=== PATIENT | female | born 1960 | race Caucasian/White ===

== ENCOUNTER 2017-03-09 19:48 | Emergency (ER) | payer OTHER ==
[~2017-03-09] VITALS: Ht 160 cm; Wt 70.8 kg
[~2017-03-09 19:48] MED LIST: ALEVE220 MG PO; B COMPLEX1 TA2 PO; FERATE27 MG PO; FLEXERIL10 MG PO; HYDROCODONE BIT1 T19 PO; MEDROL DOSEPAK4 MG PO; VICODIN 5/500 505 MG PO
== END 2017-03-09 20:53 | disposition home or self-care (01) ==
LOC: ED 19:48
DX: S90.32XA Contusion of left foot, initial encounter (principal); Z79.899 Other long term (current) drug therapy; Z88.2 Allergy status to sulfonamides; W22.8XXA Striking against or struck by other objects, initial encounter; Y93.89 Activity, other specified; Y92.89 Other specified places as the place of occurrence of the external cause; Y99.9 Unspecified external cause status

== ENCOUNTER 2021-08-11 16:51 | Emergency (ER) | payer OTHER ==
[~2021-08-11] VITALS: Ht 160 cm; Wt 70.8 kg
[2021-08-11] MEDS ORDERED: VIBRAMYCIN100 MG PO (20:15)
[2021-08-11] MEDS ORDERED: IBUPROFEN600 MG PO (20:15)
== END 2021-08-11 20:32 | disposition home or self-care (01) ==
LOC: ED 16:51
DX: L03.113 Cellulitis of right upper limb (principal); Z88.2 Allergy status to sulfonamides; Z79.899 Other long term (current) drug therapy